=== PATIENT | female | born 1995 | race Caucasian/White ===

== ENCOUNTER 2018-03-02 14:21 | Inpatient (IN) | payer BC ==
[2018-03-02] MEDS ORDERED: METHYLERGONOVINE 0.2 MG INJ IM (18:00)
[2018-03-02] MEDS ORDERED: CARBOPROST 250 MCG INJ IM (18:00)
[2018-03-02] MEDS ORDERED: LIDOCAINE 1% (MPF) 30 ML INJ INJ (18:00)
[2018-03-02] MEDS ORDERED: BUTORPHANOL 2 MG INJ IV (18:00)
[2018-03-02] MEDS ORDERED: OXYTOCIN 30 UNITS/LR 500 ML IV (18:00)
[2018-03-02] MEDS ORDERED: BUTORPHANOL 1 MG INJ IV (18:00)
[2018-03-02] MEDS ORDERED: MISOPROSTOL 200 MCG TAB PR (18:00)
[2018-03-02 18:44] LABS: ADD MAN DIFF? NO
[2018-03-02 18:48] LABS: BASOPHILS % 0.2 % (0.0-2.0); EOSINOPHILS % 0.2 % (0.0-7.0); HEMATOCRIT 33.5 % (37.0-47.0); HEMOGLOBIN 11.2 g/dl (12.0-16.0); LYMPHOCYTES # 1.6 10^3/ul (0.8-2.9); LYMPHOCYTES % 19.2 % (15.0-51.0); MEAN CORPUSCULAR HEMOGLOBIN 27.9 pg (29.0-33.0); MEAN CORPUSCULAR HGB CONC 33.4 g/dl (32.0-37.0); MEAN CORPUSCULAR VOLUME 83.5 fl (82.0-101.0); MEAN PLATELET VOLUME 11.6 fl (7.4-10.4); MONOCYTE # 0.5 10^3/ul (0.3-0.9); MONOCYTES % 5.6 % (0.0-11.0); NEUTROPHIL # 6.2 10^3/ul (1.6-7.5); NEUTROPHILS % 74.4 % (39.0-77.0); PLATELET COUNT 135 10^3/UL (140-415); RED BLOOD COUNT 4.01 10^6/ul (4.20-5.40); RED CELL DISTRIBUTION WIDTH 15.2 % (11.5-14.5)
[2018-03-02 18:48] LABS: WHITE BLOOD COUNT 8.3 10^3/ul (4.8-10.8)
[2018-03-02 19:09] LABS: INR 0.99; PROTIME 13.2 Sec (11.9-14.9)
[2018-03-02 19:10] LABS: PARTIAL THROMBOPLASTIN TIME 32.6 Sec (25.0-35.0)
[2018-03-02] MEDS: LACTATED RINGER'S 1,000 ML IV* ×2 (19:39→23:18)
[2018-03-02 20:26] LABS: HEPATITIS B SURFACE ANTIGEN NEGATIVE (NEGATIVE)
[2018-03-02] MEDS: AMPICILLIN 2 GM/NS (PMX) 100 ML IVPB (20:26)
[2018-03-02] MEDS: MISOPROSTOL 25 MCG CAPSULE PO (21:53)
[2018-03-02] MEDS ORDERED: FENTAnyl 2MCG/ML-ROPIV 0.2% 100 ML (23:34)
[2018-03-03] MEDS ORDERED: NALOXONE (0.4 MG/ML) INJ IV
[2018-03-03] MEDS: LACTATED RINGER'S 1,000 ML IV* ×2 (00:09→08:29)
[2018-03-03] MEDS: AMPICILLIN 1 GM/NS (PMX) 50 ML IVPB ×4 (01:34→12:40)
[2018-03-03] MEDS: OXYTOCIN 30 UNITS/LR 500 ML IV ×5 (02:32→19:29)
[2018-03-03] MEDS: FENTAnyl 2MCG/ML-ROPIV 0.2% 100 ML BAG EPI (05:36)
[2018-03-03] MEDS: DIPHENHYDRAMINE 50 MG INJ IV (09:35)
[2018-03-03] MEDS ORDERED: NACL 0.9% 3 ML SYG IV (15:30)
[2018-03-03] MEDS ORDERED: CARBOPROST 250 MCG INJ IM (15:30)
[2018-03-03] MEDS ORDERED: ONDANSETRON 4 MG INJ IV (15:30)
[2018-03-03] MEDS ORDERED: MISOPROSTOL 200 MCG TAB PR (15:30)
[2018-03-03] MEDS ORDERED: METHYLERGONOVINE 0.2 MG INJ IM (15:30)
[2018-03-03] MEDS ORDERED: HYDROCODONE/APAP (5/325) TAB PO ×2 (15:30)
[2018-03-03] MEDS ORDERED: OXYTOCIN 30 UNITS/LR 500 ML IV (15:30)
[2018-03-03] MEDS: IBUPROFEN 600 MG TAB PO (18:00)
[2018-03-03] MEDS: WITCH HAZEL/GLYCERIN PAD PR (19:03)
[2018-03-03] MEDS: DIBUCAINE 1% 30 GM OINT PR (19:03)
[2018-03-03] MEDS: LANOLIN 7 GM TUBE TOP (19:03)
[2018-03-03] MEDS: BENZOCAINE 20% 56 ML SPRAY TOP (19:03)
[2018-03-03 21:34] LABS: RAPID PLASMA REAGIN NONREACTIVE (NR)
[2018-03-03] MEDS: SENNA/DOCUSATE NA (8.6MG/50MG) TAB PO (22:21)
[2018-03-04] MEDS: IBUPROFEN 600 MG TAB PO ×5 (00:21→23:54)
[2018-03-04] MEDS: LACTATED RINGER'S 1,000 ML IV* (02:00)
[2018-03-04] MEDS: SENNA/DOCUSATE NA (8.6MG/50MG) TAB PO ×2 (09:45→21:11)
[2018-03-04 11:07] LABS: ADD MAN DIFF? NO
[2018-03-04 11:13] LABS: BASOPHILS % 0.3 % (0.0-2.0); EOSINOPHILS % 0.3 % (0.0-7.0); HEMATOCRIT 33.1 % (37.0-47.0); HEMOGLOBIN 10.8 g/dl (12.0-16.0); LYMPHOCYTES # 1.7 10^3/ul (0.8-2.9); LYMPHOCYTES % 18.3 % (15.0-51.0); MEAN CORPUSCULAR HGB CONC 32.6 g/dl (32.0-37.0); MEAN CORPUSCULAR VOLUME 85.8 fl (82.0-101.0); MEAN PLATELET VOLUME 12.1 fl (7.4-10.4); MONOCYTE # 0.6 10^3/ul (0.3-0.9); MONOCYTES % 6.2 % (0.0-11.0); NEUTROPHIL # 6.8 10^3/ul (1.6-7.5); NEUTROPHILS % 74.7 % (39.0-77.0); PLATELET COUNT 133 10^3/UL (140-415); RED BLOOD COUNT 3.86 10^6/ul (4.20-5.40); RED CELL DISTRIBUTION WIDTH 15.5 % (11.5-14.5)
[2018-03-05] MEDS: IBUPROFEN 600 MG TAB PO ×2 (05:48→12:46)
[2018-03-05] MEDS: SENNA/DOCUSATE NA (8.6MG/50MG) TAB PO (09:00)
== END 2018-03-05 15:45 | disposition home or self-care (01) | DRG 775 ==
LOC: OBT 14:21 → L-D 14:21 → PP1 03-03 18:11 → OBT 18:00 → L-D 18:00
PROVIDERS: Obstetrics & Gynecology
PROC: 10E0XZZ Delivery of Products of Conception, External Approach (ICD-10-PCS; principal; 2018-03-03)
PROC: 0KQM0ZZ Repair Perineum Muscle, Open Approach (ICD-10-PCS; 2018-03-03)
DX: O41.03X0 Oligohydramnios, third trimester, not applicable or unspecified (principal); O70.1 Second degree perineal laceration during delivery; Z37.0 Single live birth; Z3A.39 39 weeks gestation of pregnancy
CPT/HCPCS: 62319; 76815; 76818; 85025; 85610; 85730; 86592; 86850; 86900; 86901; 87340; 99464

== ENCOUNTER 2019-02-20 21:44 | Emergency (ER) | payer BC | END 2019-02-21 00:16 | disposition home or self-care (01) | LOC: FTE 02-21 00:16 | DX: M94.0 Chondrocostal junction syndrome [Tietze] (principal); J40 Bronchitis, not specified as acute or chronic | CPT/HCPCS: 99283; Z7502 ==

== ENCOUNTER 2019-04-26 13:11 | Emergency (ER) | payer BC ==
[2019-04-26] MEDS: KETOROLAC 30 MG INJ IM (15:46)
== END 2019-04-26 16:13 | disposition home or self-care (01) ==
LOC: FTE 13:11
DX: J32.9 Chronic sinusitis, unspecified (principal); R53.1 Weakness
CPT/HCPCS: 81025; 93005; 96372; 99284-25